=== PATIENT | male | born 1975 | race Two or more races ===

== ENCOUNTER 2017-08-13 14:13 | Emergency (ER) | payer OTHER ==
--- NOTE | 2017-08-13 14:28 | PDOC ---
Rapid Medical Evaluation Chief Complaint: Abscess Boil Time Seen by Provider: 08/13/17 14:24 Medical Evaluation: Allergies Allergy/AdvReac Type Severity Reaction Status Date / Time No Known Allergies Allergy Verified 02/10/15 15:12 08/13/17 14:24 Healthy 42 year old male with two days of left testicular "bump." Tender/ painful limiting ambulation. No fevers/chills. Scant bloody drainage from site, no pus. Seen by PCP today and referred for I&D of abscess. V/s unremarkable.
[2017-08-13 14:29] VITALS: TEMP 98.5; BMI 28.5
[2017-08-13] MEDS ORDERED: ACETAMINOPHEN 500 MG TABLET (FP) PO ONE (17:05)
[2017-08-13] MEDS ORDERED: ACETAMINOPHEN 325 MG TABLET (FP) ONE (17:25)
--- NOTE | 2017-08-13 18:23 | PDOC ---
History of Present Illness - General Chief Complaint: Abscess Boil Stated Complaint: ABSCESS BOIL Time Seen by Provider: 08/13/17 14:24 History Source: Patient Exam Limitations: No Limitations - History of Present Illness Initial Comments: 08/13/17 18:12 42-year-old male with no severe past medical history presents with painful left thigh lesion For 2 days. Patient shaved his legs 2 weeks ago, over the last 48 hours has developed painful swelling to his left inner thigh with no discharge, no fevers or chills, presents for evaluation. No other injury, no history of recurring abscesses or MRSA that he is aware of. No other exposures. Past History - Past Medical History Allergies/Adverse Reactions: Allergies Allergy/AdvReac Type Severity Reaction Status Date / Time No Known Allergies Allergy Verified 08/13/17 14:29 Home Medications: Ambulatory Orders Sulfamethoxazole/Trimethoprim [Bactrim Ds -] 2 tab PO BID #40 tablet 08/13/17 Tramadol HCl 50 mg PO TID PRN #10 tablet MDD 3 tabs 08/13/17 COPD: No - Immunization History Immunization Up to Date: No - Suicide/Smoking/Psychosocial Hx Smoking History: Never smoked Have you smoked in the past 12 months: No Number of Cigarettes Smoked Daily: 0 Information on smoking cessation initiated: No Hx Alcohol Use: No Drug/Substance Use Hx: No Substance Use Type: None Review of Systems - Review of Systems Constitutional: No: Chills, Fever Respiratory: No: Cough Musculoskeletal: No: Muscle Pain Integumentary: Yes: See HPI *Physical Exam - Vital Signs Last Vital Signs Temp Pulse Resp BP Pulse Ox 98.5 F 70 18 125/72 97 08/13/17 14:26 08/13/17 14:26 08/13/17 14:26 08/13/17 14:26 08/13/17 14:26 - Physical Exam Comments: 08/13/17 18:13 vital signs stable, afebrile. GENERAL: The patient is awake, alert, and fully oriented, in no acute distress. HEAD: Normal with no signs of trauma. EYES: Pupils equal, round and reactive to light, extraocular movements intact, sclera anicteric, conjunctiva clear. EXTREMITIES: Normal range of motion, no edema. NEUROLOGICAL: Normal speech, normal gait. PSYCH: Normal mood, normal affect. SKIN: 3 cm tender indurated lesion in the left inner thigh, no active drainage. No surrounding cellulitis, slight left inner no lymphadenopathy but no superimposed adenitis, no scrotal tenderness/erythema/swelling/crepitus. Normal uncircumcised penis. L dorsal wrist subcutaneous cyst without infection. ED Treatment Course - Medications Given in the ED: ED Medications Discontinued Medications Generic Name Dose Route Start Last Admin Trade Name Freq PRN Reason Stop Dose Admin Acetaminophen 1,000 mg 08/13/17 17:05 08/13/17 17:27 Tylenol - PO 08/13/17 17:06 1,000 mg ONCE ONE Administration Medical Decision Making - Medical Decision Making 08/13/17 18:14 42-year-old immunocompetent male presents with left thigh abscess after shaving. No systemic symptoms, vital signs normal. Isolated left thigh no superimposed cellulitis. HIV test requested and negative INCISION AND DRAINAGE PROCEDURE: The skin was prepped with Betadine solution. 2% lidocaine was injected subcutaneously for local anesthesia. Incision of the center of the abscess was performed with a #11 blade. A small amount of Purulent material was expressed from the incision. A curved clamp was used to break up loculations within the abscess. Further purulent material was expressed from the incision. A clean, dry, sterile dressing was placed. Patient was advised regarding wound care and followup for packing removal. drawing tender, suspect that this still may progress to further abscess. Will attempt outpatient Bactrim, wound check in 72 hours, understands return criteria. *DC/Admit/Observation/Transfer Diagnosis at time of Disposition: Abscess of left thigh - Discharge Dispostion Disposition: HOME Condition at time of disposition: Improved - Prescriptions Prescriptions: Sulfamethoxazole/Trimethoprim [Bactrim Ds -] 2 tab PO BID #40 tablet Tramadol HCl 50 mg PO TID PRN #10 tablet MDD 3 tabs PRN Reason: Pain - Referrals Referrals: Tanika Vences MD [Staff Physician] - - Patient Instructions Printed Discharge Instructions: DI for Incision and Drainage of a Skin Abscess Additional Instructions: Activity as tolerated. Stay hydrated. Tylenol 1000 mg every 8 hours and/or ibuprofen 600 mg every 8 hours as needed for pain. Keep the wound clean and dry, no soaking or scrubbing. Take Bactrim as prescribed for 10 days. Return to the emergency department in 3 days for wound check, return sooner if you develop pus or bleeding, increased swelling or redness, fevers or chills. Continue your medications as previously prescribed by your physician. You can follow-up with a lithographic photographer apprentice regarding your left wrist skin cyst. 1. As discussed, a screening test for the HIV virus was performed today. Your HIV test is Negative (normal). 2. As discussed, if you engaged in high risk-behavior in the three (3) months prior to this test, you could still potentially be at risk and you will need to be re-tested. 3. As discussed, avoid any high risk behavior (such as unprotected sex or needle-sharing) in the future to minimize the chances of ricarda HIV. - Post Discharge Activity Forms/Work/School Notes: Back to Work
[2017-08-13] MEDS ORDERED: SULFAMETHOXAZOLE/TRIMETHOPRIM 800MG/160MG D.S. TABLET PO ONE (18:30)
[2017-08-13 18:43] VITALS: BP 118/66; PULSE 72
[2017-08-13] MEDS ORDERED: SULFAMETHOXAZOLE/TRIMETHOPRIM 800MG/160MG D.S. TABLET ONE (18:49)
== END 2017-08-13 18:48 | disposition home or self-care (01) ==
LOC: JERFT 14:13 → JER 14:13
PROC: 0J9M0ZZ Drainage of Left Upper Leg Subcutaneous Tissue and Fascia, Open Approach (ICD-10-PCS; principal; 2017-08-13)
DX: L02.416 Cutaneous abscess of left lower limb (principal)
CPT/HCPCS: 36415; 99282-25

== ENCOUNTER 2019-01-27 10:43 | Emergency (ER) | payer OTHER ==
[2019-01-27 10:54] VITALS: BP 110/74; PULSE 79; TEMP 98.3; BMI 28.2
[2019-01-27] MEDS ORDERED: DEXAMETHASONE SOD PHOSPHATE 10 MG/1 ML VIAL IM ONE (11:08)
[2019-01-27] MEDS ORDERED: DEXAMETHASONE SOD PHOSPHATE 10 MG/1 ML VIAL ONE (11:10)
--- NOTE | 2019-01-27 11:12 | PDOC ---
History of Present Illness - General Chief Complaint: Allergic Reaction Stated Complaint: ALERGIC REACTION Time Seen by Provider: 01/27/19 10:59 History Source: Patient Exam Limitations: Clinical Condition - History of Present Illness Initial Comments: 01/27/19 11:14 Patient with no medical history present with complaint of three-day history of diffuse hives all over the body with itching. Patient reported taking Benadryl 2 days ago but rash has been worsening. Denies choking sensation, tongue or lip swelling. Denies throat swelling or shortness of breath. Denies any other symptoms Timing/Duration: other (3 days) Past History - Past Medical History Allergies/Adverse Reactions: Allergies Allergy/AdvReac Type Severity Reaction Status Date / Time No Known Allergies Allergy Verified 08/13/17 14:29 Home Medications: Ambulatory Orders Sulfamethoxazole/Trimethoprim [Bactrim Ds -] 2 tab PO BID #40 tablet 08/13/17 Tramadol HCl 50 mg PO TID PRN #10 tablet MDD 3 tabs 08/13/17 Famotidine [Pepcid -] 20 mg PO BID 5 Days #10 tablet 01/27/19 predniSONE [Deltasone -] 20 mg PO BID 5 Days #10 tablet 01/27/19 COPD: No GI Disorders: Yes (GERD) - Immunization History Immunization Up to Date: No - Suicide/Smoking/Psychosocial Hx Smoking History: Never smoked Have you smoked in the past 12 months: No Number of Cigarettes Smoked Daily: 0 Information on smoking cessation initiated: No Hx Alcohol Use: No Drug/Substance Use Hx: No Substance Use Type: None Review of Systems - Review of Systems Able to Perform ROS?: Yes Is the patient limited Persian proficient: No Constitutional: No: Malaise, Weakness HEENTM: No: Symptoms Reported, Throat Swelling, Difficulty Swallowing, Mouth Swelling Respiratory: No: Symptoms reported, Orthopnea, Shortness of Breath, SOB with Exertion, SOB at Rest Cardiac (ROS): No: Symptoms Reported ABD/GI: No: Nausea, Vomiting Integumentary: Yes: Symptoms Reported, See HPI, Pruritus, Rash (all over the body) All Other Systems: Reviewed and Negative *Physical Exam - Vital Signs Last Vital Signs Temp Pulse Resp BP Pulse Ox 98.3 F 79 20 110/74 100 01/27/19 10:51 01/27/19 10:51 01/27/19 10:51 01/27/19 10:51 01/27/19 10:51 - Physical Exam Comments: 01/27/19 11:17 GENERAL: Well developed, well nourished. Awake and alert. No acute distress. HEENT: Normocephalic, atraumatic. PERRLA, EOMI. No conjunctival pallor. Sclera are non-icteric. Moist mucous membranes. Oropharynx is clear. Throat patent. No tongue or lip swelling. NECK: Supple. Full ROM. CARDIOVASCULAR: Regular rate and rhythm. No murmurs, rubs, or gallops. PULMONARY: No evidence of respiratory distress. Lungs clear to auscultation bilaterally. No wheezing, rales or rhonchi. MUSCULOSKELETAL Normal range of motion at all joints. SKIN: Warm and dry. Normal capillary refill. No diffuse urticarial rash all over the body without excoriations. NEUROLOGICAL: Alert, awake, appropriate. Gait is normal without ataxia. PSYCHIATRIC: Cooperative. Good eye contact. Appropriate mood General Appearance: Yes: Nourished, Appropriately Dressed. No: Apparent Distress Medical Decision Making - Medical Decision Making 01/27/19 11:15 Patient with no medical history present with complaint of three-day history of diffuse hives all over the body with itching. Patient reported taking Benadryl 2 days ago but rash has been worsening. Denies choking sensation, tongue or lip swelling. Denies throat swelling or shortness of breath. Denies any other symptoms Exam was significant for diffuse urticarial rash all over the body without excoriations otherwise normal exam. Oropharynx normal. No lip or tongue swelling. Throat patent. Symptoms likely ALLERGIC dermatitis. Decadron 10 mg IM ordered. Patient be discharged home on by mouth prednisone and Pepcid twice a day for 5 days for ALLERGIC reaction with dermatology follow-up as needed *DC/Admit/Observation/Transfer Diagnosis at time of Disposition: Allergic dermatitis - Discharge Dispostion Disposition: HOME Condition at time of disposition: Stable Decision to Admit order: No - Prescriptions Prescriptions: Famotidine [Pepcid -] 20 mg PO BID 5 Days #10 tablet predniSONE [Deltasone -] 20 mg PO BID 5 Days #10 tablet - Referrals Referrals: Tanika Vences MD [Staff Physician] - - Patient Instructions Printed Discharge Instructions: DI for Hives Additional Instructions: Take medications as prescribed. Follow-up referred dermatology if no improvement in 3 days. - Post Discharge Activity
== END 2019-01-27 11:19 | disposition home or self-care (01) ==
LOC: JERFT 10:43
PROC: 3E0233Z Introduction of Anti-inflammatory into Muscle, Percutaneous Approach (ICD-10-PCS; principal; 2019-01-27)
DX: L23.9 Allergic contact dermatitis, unspecified cause (principal)
CPT/HCPCS: 99281-25; J1100

== ENCOUNTER 2019-01-31 10:07 | Emergency (ER) | payer OTHER ==
[2019-01-31 10:16] VITALS: BP 125/82; PULSE 54; TEMP 98.2; BMI 28.2
[2019-01-31] MEDS ORDERED: methylPREDNISolone ACET (DEPO) 40 MG/1 ML VIAL IM ONE (10:58)
--- NOTE | 2019-01-31 11:05 | PDOC ---
History of Present Illness - General Chief Complaint: Itching Stated Complaint: RASH ALL OVER BODY Time Seen by Provider: 01/31/19 10:41 History Source: Patient Exam Limitations: Clinical Condition - History of Present Illness Initial Comments: 01/31/19 11:09 Patient with no syndrome medical history present with complaint of persistent hives for over a week now status post being seen a week ago with hives and given by mouth prednisone and Pepcid which patient report helps was symptoms by symptoms keep coming back. Patient reported rash has been on and off for week now and is still itching all over the body. Patient did not follow up with dermatology as instructed Timing/Duration: reports: week Past History - Past Medical History Allergies/Adverse Reactions: Allergies Allergy/AdvReac Type Severity Reaction Status Date / Time No Known Allergies Allergy Verified 01/31/19 10:15 Home Medications: Ambulatory Orders Sulfamethoxazole/Trimethoprim [Bactrim Ds -] 2 tab PO BID #40 tablet 08/13/17 Tramadol HCl 50 mg PO TID PRN #10 tablet MDD 3 tabs 08/13/17 Famotidine [Pepcid -] 20 mg PO BID 5 Days #10 tablet 01/27/19 predniSONE [Deltasone -] 20 mg PO BID 5 Days #10 tablet 01/27/19 Hydroxyzine HCl 25 mg PO Q8H #12 tablet 01/31/19 Methylprednisolone [Medrol Dose Damon] 4 mg PO ASDIR #21 tablet 01/31/19 COPD: No GI Disorders: Yes (GERD) - Immunization History Immunization Up to Date: No - Suicide/Smoking/Psychosocial Hx Smoking History: Never smoked Have you smoked in the past 12 months: No Number of Cigarettes Smoked Daily: 0 Hx Alcohol Use: No Drug/Substance Use Hx: No Substance Use Type: None Review of Systems - Review of Systems Able to Perform ROS?: Yes Is the patient limited Irish proficient: No Constitutional: No: Chills, Fever, Malaise HEENTM: No: Symptoms Reported Respiratory: No: Symptoms reported Cardiac (ROS): No: Symptoms Reported Musculoskeletal: No: Symptoms Reported Integumentary: Yes: Symptoms Reported, See HPI, Pruritus, Rash (all over the body) Neurological: No: Headache, Dizziness All Other Systems: Reviewed and Negative *Physical Exam - Vital Signs Last Vital Signs Temp Pulse Resp BP Pulse Ox 98.2 F 54 L 18 125/82 100 01/31/19 10:15 01/31/19 10:15 01/31/19 10:15 01/31/19 10:15 01/31/19 10:15 - Physical Exam Comments: 01/31/19 11:12 GENERAL: Well developed, well nourished. Awake and alert. No acute distress. HEENT: Normocephalic, atraumatic. PERRLA, EOMI. No conjunctival pallor. Sclera are non-icteric. Moist mucous membranes. Oropharynx is clear. NECK: Supple. Full ROM. CARDIOVASCULAR: Regular rate and rhythm. No murmurs, rubs, or gallops. PULMONARY: No evidence of respiratory distress. Lungs clear to auscultation bilaterally. No wheezing, rales or rhonchi. MUSCULOSKELETAL Normal range of motion at all joints. SKIN: Warm and dry. Normal capillary refill. Multiple urticarial rash to bilateral upper and lower extremities and face without excoriations. NEUROLOGICAL: Alert, awake, appropriate. Gait is normal without ataxia. PSYCHIATRIC: Cooperative. Good eye contact. Appropriate mood General Appearance: Yes: Nourished, Appropriately Dressed. No: Apparent Distress Medical Decision Making - Medical Decision Making 01/31/19 11:11 Patient with no syndrome medical history present with complaint of persistent hives for over a week now status post being seen a week ago with hives and given by mouth prednisone and Pepcid which patient report helps was symptoms by symptoms keep coming back. Patient reported rash has been on and off for week now and is still itching all over the body. Patient did not follow up with dermatology as instructed Exam significant for multiple itchy cardial rash to bilateral upper and lower extremity face. No rash to back or torso. Methylprednisolone 40 mg IM ordered for rash. Patient be discharged home on Medrol Damon for 5 days and hydroxyzine for itching with dermatology follow-up *DC/Admit/Observation/Transfer Diagnosis at time of Disposition: Allergic dermatitis - Discharge Dispostion Disposition: HOME Condition at time of disposition: Stable Decision to Admit order: No - Prescriptions Prescriptions: Hydroxyzine HCl 25 mg PO Q8H #12 tablet Methylprednisolone [Medrol Dose Damon] 4 mg PO ASDIR #21 tablet - Referrals Referrals: Tanika Vences MD [Staff Physician] - - Patient Instructions Printed Discharge Instructions: DI for Hives Additional Instructions: Take medications as prescribed. Make a follow-up appointment with referred microelectronics engineer - Post Discharge Activity
[2019-01-31] MEDS ORDERED: methylPREDNISolone NA SUCC 125 MG/2 ML VIAL ONE (11:08)
== END 2019-01-31 11:28 | disposition home or self-care (01) ==
LOC: JERFT 10:07
PROC: 3E023GC Introduction of Other Therapeutic Substance into Muscle, Percutaneous Approach (ICD-10-PCS; principal; 2019-01-31)
DX: L23.9 Allergic contact dermatitis, unspecified cause (principal)
CPT/HCPCS: 96372; 99281-25

== ENCOUNTER 2021-10-01 08:12 | Emergency (ER) | payer OTHER ==
[2021-10-01 08:41] VITALS: BP 122/78; PULSE 79; TEMP 98.1; BMI 29.5
[2021-10-01] MEDS ORDERED: ERYTHROMYCIN 0.5% OPHTHALMIC OINTMENT 3.5 GM TUBE OU ONE (09:02)
[2021-10-01] MEDS ORDERED: DEXAMETHASONE SOD PHOSPHATE 10 MG/1 ML VIAL PO ONE (09:02)
[2021-10-01] MEDS ORDERED: ERYTHROMYCIN 0.5% OPHTHALMIC OINTMENT 3.5 GM TUBE ONE (09:05)
[2021-10-01] MEDS ORDERED: DEXAMETHASONE SOD PHOSPHATE 10 MG/1 ML VIAL ONE (09:05)
== END 2021-10-01 09:13 | disposition home or self-care (01) ==
LOC: JER 08:12
DX: N39.0 Urinary tract infection, site not specified (principal)
CPT/HCPCS: 99283-25; J1100

== ENCOUNTER 2023-03-21 09:00 | Emergency (ER) | payer OTHER ==
[2023-03-21 09:15] VITALS: BP 138/87; PULSE 79; RESP 16; TEMP 99.2; BMI 29.5
[2023-03-21] MEDS ORDERED: ACETAMINOPHEN 500 MG TABLET (FP) PO ONE (09:33)
[2023-03-21] MEDS ORDERED: AMOXICILLIN 500 MG CAPSULE (FP) PO ONE (09:33)
[2023-03-21] MEDS ORDERED: ACETAMINOPHEN 500 MG TABLET (FP) ONE (09:47)
[2023-03-21] MEDS ORDERED: AMOX TR/POT CLAV 500MG/125MG TABLETS (FP) ONE (09:47)
== END 2023-03-21 10:30 | disposition home or self-care (01) ==
LOC: JER 09:00 → JERFT 09:00
DX: R50.9 Fever, unspecified (principal); R13.10 Dysphagia, unspecified; J03.00 Acute streptococcal tonsillitis, unspecified; Z20.822 Contact with and (suspected) exposure to COVID-19
CPT/HCPCS: 0241U-QW; 87651; 99283-25

== ENCOUNTER 2023-03-30 04:34 | Day surgery (SDC) | payer OTHER ==
[2023-03-25 07:53] VITALS: BMI 29.5
[2023-03-30 12:46] VITALS: RESP 18
[2023-03-30] MEDS ORDERED: MIDAZOLAM HCL 2 MG/2 ML SINGLE DOSE VIAL ONE (15:21)
[2023-03-30 18:00] VITALS: BP 129/77; PULSE 57; TEMP 97.8
== END 2023-03-30 17:50 | disposition home or self-care (01) ==
LOC: JASU-SURG 04:34
PROVIDERS: ATTEND Urology
PROC: 0TF3XZZ Fragmentation in Right Kidney Pelvis, External Approach (ICD-10-PCS; principal; 2023-03-30 14:30)
DX: N20.0 Calculus of kidney (principal)